=== PATIENT | male | born 1950 | race African-American/Black ===

== ENCOUNTER 2022-04-14 17:21 | Emergency (ER) | payer OTHER ==
[~2022-04-14] VITALS: Ht 180.3 cm; Wt 100.2 kg
[2022-04-14 18:01] LABS: CLARITY,URINE CLEAR (CLEAR); COLOR,URINE YELLOW (YELLOW); LEUKOCYTE ESTERASE ,URINE SMALL (NEGATIVE); NITRITE,URINE NEGATIVE (NEGATIVE)
[2022-04-14 18:02] LABS: KETONES,URINE NEGATIVE (NEGATIVE); PROTEIN,URINE DIPSTICK NEGATIVE (NEGATIVE); URINE UROBILINOGEN 1 mg/dL (0.2 - 1)
[2022-04-14 18:18] LABS: AMORPHOUS SEDIMENT,URINE MODERATE (FEW); BACTERIA,URINE FEW /HPF; RBC,URINE 0-5 /HPF (0-5)
[2022-04-14 20:43] VITALS: BP 119/57
[2022-04-14] MEDS ORDERED: CIPRO500 MG PO (20:45)
[2022-04-14] MEDS ORDERED: ULTRAM 50MG50 MG PO (20:45)
== END 2022-04-14 20:47 | disposition home or self-care (01) ==
LOC: ER 17:32
DX: R10.32 Left lower quadrant pain (principal); N45.1 Epididymitis; N43.3 Hydrocele, unspecified; I10 Essential (primary) hypertension; E78.5 Hyperlipidemia, unspecified
CPT/HCPCS: 74176; 76870; 81001; 93976; 99283